=== PATIENT | male | born 1960 | race Two or more races ===

== ENCOUNTER 2017-09-10 09:52 | Day surgery (SDC) | payer BC, OTHER ==
[2017-09-05 15:07] VITALS: BMI 20.7
[~2017-09-10 09:52] MED LIST: ceFAZolin SODIUM 1 GM VIAL IVPB ONE
[2017-09-10] MEDS ORDERED: TAMSULOSIN HCL 0.4 MG CAP.ER.24H (FP) ONE (10:22)
[2017-09-10] MEDS ORDERED: DEXAMETHASONE SOD PHOSPHATE/PF 10 MG/ML SDV ONE (10:24)
[2017-09-10] MEDS ORDERED: MIDAZOLAM HCL 2 MG/2 ML SINGLE DOSE VIAL ONE (10:25)
[2017-09-10] MEDS ORDERED: BUPIVACAINE HCL/PF (5 MG/ML) 30 ML VIAL IJ ONE (10:25)
[2017-09-10] MEDS ORDERED: ROCURONIUM BROMIDE 50 MG/5 ML VIAL ONE (11:40)
[2017-09-10] MEDS ORDERED: fentaNYL CITRATE 250 MCG/5 ML VIAL ONE (11:40)
[2017-09-10] MEDS ORDERED: PROPOFOL 20 ML ONE (11:40)
[2017-09-10] MEDS ORDERED: ceFAZolin SODIUM 1 GM VIAL ONE (12:14)
[2017-09-10] MEDS ORDERED: LIDOCAINE HCL/PF 2% SDV 5ML VIAL ONE (12:14)
[2017-09-10] MEDS ORDERED: ONDANSETRON 4 MG/2 ML VIAL ONE (12:14)
[2017-09-10] MEDS ORDERED: KETOROLAC TROMETHAMINE 30 MG/1 ML VIAL ONE (12:14)
[2017-09-10] MEDS ORDERED: NEOSTIGMINE METHYLSULFATE 0.5 MG/ML - 10 ML MDV ONE (13:29)
--- NOTE | 2017-09-10 13:53 | OP ---
Operative Note - Note: Operative Date: 09/10/17 Pre-Operative Diagnosis: left inguinal hernia Operation: laparoscopic repair left indirect inguinal hernia with mesh, laparoscopic repair recurrent right indirect inguinal hernia with mesh Findings: left indirect, right recurrent indirect hernia Implants: covidian versatex mesh 4"x6" Post-Operative Diagnosis: Same as Pre-op Surgeon: Ruben Valdes Watch Technician: Sandip Hinds Anesthesiologist/NURSERYMAN ASSISTANT: Mari Rod Specimens Removed: none Estimated Blood Loss (mls): 10 Operative Report Dictated: Yes
[2017-09-10] MEDS ORDERED: BUPIVACAINE HCL/PF 0.5% (5MG/ML) 10 ML VIAL ONE (14:17)
[2017-09-10] MEDS ORDERED: oxyCODONE HCL 5 MG TABLET PO PRN (14:49)
[2017-09-10] MEDS ORDERED: ONDANSETRON 4 MG/2 ML VIAL IVPUSH PRN (14:49)
[2017-09-10] MEDS ORDERED: LACTATED RINGERS SOLUTION 1,000 ML IV SCH (15:00)
[2017-09-10] MEDS ORDERED: oxyCODONE HCL 5 MG TABLET ONE (15:55)
[2017-09-10 17:41] VITALS: PULSE 59
[2017-09-10 18:04] VITALS: BP 108/62; TEMP 97.9
--- NOTE | 2017-09-11 11:54 | OP ---
DATE OF OPERATION: 09/11/2017 PREOPERATIVE DIAGNOSIS: Left inguinal hernia, suspect possible right, recurrent inguinal hernia. POSTOPERATIVE DIAGNOSIS: Left inguinal hernia, suspect possible right, recurrent inguinal hernia. PROCEDURE: Laparoscopic repair of left indirect inguinal hernia with mesh as well as laparoscopic repair of recurrent right indirect inguinal hernia with mesh. SURGEON: Ruben Valdes DO [employer]AND MILL OPERATOR FACING SAND: Sandip Hinds MD ANESTHESIOLOGIST: Mari Rdo MD (general) INTRAOPERATIVE FINDINGS: A large, indirect left inguinal hernia and a recurrent , small right indirect hernia. BLOOD LOSS: Minimal. COMPLICATIONS: None. DISPOSITION: To recovery room in stable condition with expectation to be discharged home. BRIEF HISTORY: This is a 56-year-old male who had 2 previous right-sided inguinal hernia repairs and presents for operative repair of a new left inguinal hernia. He presents now to have the left side repaired and to have the right side evaluated for possible repair as well. DESCRIPTION OF PROCEDURE: The patient was placed in a supine position. After general anesthesia was initiated, the abdomen was prepped and draped in a sterile fashion. A Celeste catheter was inserted. Next, a vertical incision to the left of the umbilicus and inferior over the anterior rectus sheath. The anterior rectus sheath was opened. The rectus muscle was split, and a space was developed anterior to the posterior rectus sheath. The space-creating balloon was inserted and inflated to 40 puffs and removed. Next, the structural balloon was placed, and pneumoperitoneum was created into the preperitoneal space at a pressure of 12. A 10-mm 0-degree laparoscope was then inserted, and an additional 11-mm trocar was placed in the midline approximately 2.5 inches below the camera port. The dissection was noted to be adequate. Attention was turned toward the midline, and the pubic tubercle was identified as well as both Raleigh ligaments bilaterally. Attention was turned toward the left side. The inguinal spermatic cord was identified. A large hernia sac was noted, and it was reduced off of the cord structures as well as a cord lipoma. Space was created, and two Bard Ventralex mesh were placed with a slit and wrapped around the cord. The 2nd mesh was placed more lateral to procedure additional coverage. Tacks were secured to re-create the internal ring as well a tack to Raleigh ligament inferiorly, the rectus superiorly, and tacks were placed in the lateral abdominal wall as well. The epigastric vessels were easily identified as well as the cord structures. Attention was then turned toward the right side. The patient was noted to have a small recurrence of an indirect hernia. The hernia sac was carefully dissected off of the cord as well. A space was created around the cord. Additional mesh with slit was placed and wrapped around the cord. It was secured with AbsorbaTack inferiorly to Raleigh's ligament and superiorly to the rectus muscle and laterally to the oblique. At this point, both hernia sacs were tacked to the posterior surface of the mesh to prevent the recurrence. Pneumoperitoneum was then released, and trocars were removed under direct visualization. The fascia of the 2 trocar sites were then closed with interrupted 0 Vicryl sutures, and the 2 skin incisions were closed with Biosyn, and Dermabond dressing was placed. Overall, the patient tolerated the procedure well. There were no complications. Celeste catheter was removed at the end of the operation. Testicles were both checked to make sure they were at their proper location. DO ONOFRE DOWLING/[id number] MTDD
== END 2017-09-10 16:50 | disposition home or self-care (01) ==
LOC: FASU 09:52
PROVIDERS: ATTEND Surgery
PROC: 0YUA4JZ Supplement Bilateral Inguinal Region with Synthetic Substitute, Percutaneous Endoscopic Approach (ICD-10-PCS; principal; 2017-09-10 11:00)
DX: K40.90 Unilateral inguinal hernia, without obstruction or gangrene, not specified as recurrent (principal); K40.91 Unilateral inguinal hernia, without obstruction or gangrene, recurrent
CPT/HCPCS: 94760

== ENCOUNTER 2021-04-19 09:11 | Emergency (ER) | payer OTHER, BC ==
[2021-04-19 09:28] VITALS: BP 149/104; PULSE 70; TEMP 97.8; BMI 28.5
[2021-04-19] MEDS ORDERED: KETOROLAC TROMETHAMINE 30 MG/1 ML VIAL IVPUSH ONE (09:45)
[2021-04-19] MEDS ORDERED: KETOROLAC TROMETHAMINE 30 MG/1 ML VIAL ONE (09:47)
[2021-04-19] MEDS ORDERED: LIDOCAINE 5% TOPICAL PATCH ONE (09:53)
[2021-04-19] MEDS ORDERED: LIDOCAINE 5% TOPICAL PATCH TP ONE (10:08)
[2021-04-19] MEDS ORDERED: LIDOCAINE PATCH REMOVAL MC ONE (22:00)
== END 2021-04-19 10:21 | disposition home or self-care (01) ==
LOC: JER 09:11
PROC: 3E0233Z Introduction of Anti-inflammatory into Muscle, Percutaneous Approach (ICD-10-PCS; principal; 2021-04-19)
DX: M54.32 Sciatica, left side (principal)
CPT/HCPCS: 99283-25

== ENCOUNTER 2021-04-20 14:29 | Emergency (ER) | payer OTHER, BC ==
[2021-04-20 14:41] VITALS: BP 141/88; PULSE 81; TEMP 98; BMI 28.5
[2021-04-20] MEDS ORDERED: KETOROLAC TROMETHAMINE 30 MG/1 ML VIAL IM ONE (15:29)
[2021-04-20] MEDS ORDERED: KETOROLAC TROMETHAMINE 30 MG/1 ML VIAL ONE (15:30)
== END 2021-04-20 17:18 | disposition home or self-care (01) ==
LOC: JER 14:29
PROC: 3E0233Z Introduction of Anti-inflammatory into Muscle, Percutaneous Approach (ICD-10-PCS; principal; 2021-04-20)
DX: M54.42 Lumbago with sciatica, left side (principal); M62.830 Muscle spasm of back
CPT/HCPCS: 72100-TC-FY; 99284-25

== ENCOUNTER 2024-03-11 16:31 | Emergency (ER) | payer OTHER, BC ==
[2024-03-11 16:40] VITALS: RESP 18; BMI 27.2
[2024-03-11 19:49] LABS: EPI CELLS 2 /uL (0-25.1); HYALINE CASTS 0 /uL (0-3.1); PH,URINE 5.5 (5.0-8.0); URINE APPEARANCE CLOUDY; URINE BACTERIA 2 /uL (0-1359); URINE BILIRUBIN NEGATIVE (NEGATIVE); URINE COLOR YELLOW; URINE GLUCOSE (UA) NEGATIVE (NEGATIVE); URINE KETONE NEGATIVE (NEGATIVE); URINE LEUK ESTERASE TRACE (NEGATIVE); URINE NITRITE NEGATIVE (NEGATIVE); URINE PROTEIN 1+ (NEGATIVE); URINE RBC 1485 /uL (0-23.9); URINE UROBILINOGEN 0.2 mg/dL (0.2-1.0); URINE WBC 24 /uL (0-25.8)
[2024-03-11 21:29] LABS: BASO % 0.2 % (0-2.0); EOS % 0.5 % (0-4.5); HEMATOCRIT 42.1 % (35.4-49); HEMOGLOBIN 14.9 GM/dL (11.7-16.9); LYMPH % 24.9 % (8-40); MCH 31.4 pg (25.7-33.7); MCHC 35.4 g/dl (32.0-35.9); MEAN CELL VOLUME 88.8 fl (80-96); MEAN PLT VOLUME 8.2 fl (7.5-11.1); MONO % 7.1 % (3.8-10.2); NEUT % 67.3 % (42.8-82.8); PLATELET COUNT 177 10^3/uL (134-434); RBC 4.74 M/mm3 (4.00-5.60); RDW 11.7 % (11.9-15.9); WHITE BLOOD COUNT 8.2 K/mm3 (4.0-10.0)
[2024-03-11] MEDS: SODIUM CHLORIDE 0.9% 500 ML INFUS.BAG IV ONE (21:33)
[2024-03-11 21:49] LABS: POTASSIUM 3.8 mmol/L (3.5-5.1)
[2024-03-11 21:51] LABS: ALBUMIN 3.9 g/dl (3.4-5.0)
[2024-03-11 21:55] LABS: CREATININE 0.8 mg/dL (0.55-1.3)
[2024-03-11 21:56] LABS: BILIRUBIN,TOTAL 0.9 mg/dL (0.2-1); TOT PROT 6.6 g/dl (6.4-8.2)
[2024-03-11 22:36] VITALS: BP 130/71; PULSE 63; TEMP 98
== END 2024-03-11 23:27 | disposition home or self-care (01) ==
LOC: JER 16:31
DX: R10.84 Generalized abdominal pain (principal); R31.9 Hematuria, unspecified
CPT/HCPCS: 36415; 74176-TC; 80053; 81003; 85025; 87086; 99284-25